=== PATIENT | male | born 1960 | race Caucasian/White ===

== ENCOUNTER → 2019-03-03 | Outpatient (CLI) | payer BC ==
--- NOTE | 2019-03-03 10:22 | MR ---
EXAMINATION TYPE: MR cervical spine wo con DATE OF EXAM ORDERED: 03/03/2019 9:59 AM HISTORY: Radiculopathy. TECHNOLOGIST HISTORY AT TIME OF EXAM: neck pain into left shoulder and arm COMPARISON: None. TECHNIQUE: Multiplanar, multiecho imaging of the cervical spine was obtained without contrast on a 1 .5 kate magnet. FINDINGS: Prevertebral soft tissues are unremarkable. Vertebral body height and alignment are maintained. Atlantoaxial relationships are normal. There is a normal craniocervical junction. Cord signal is normal. At C2-C3, no definite abnormality is seen. At C3-C4, there is mild left-sided intervertebral foraminal narrowing. At C4-C5, there is mild disc space loss and hypertrophic spondylosis. There is mild, bilateral interv ertebral foraminal narrowing. There is a diffuse disc displacement. The facet and uncovertebral joint s are unremarkable. At C5-C6, there is disc space loss and disc desiccation. There is hypertrophic spondylosis both anter iorly and posteriorly. There is a mixed spondylitic bar present posteriorly deforming the thecal sac without definite cord contact. There is intervertebral foraminal narrowing, worse on the left than th e right. The facet joints are unremarkable. There is mild uncovertebral joint disease. At C6-7 and C7-T1, no definite abnormality is seen. IMPRESSION: 1. DEGENERATIVE DISC DISEASE AND HYPERTROPHIC SPONDYLOSIS MOST MARKED AT C4-5 AND C5-6. 2. 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 3. MULTILEVEL INTERVERTEBRAL FORAMINAL NARROWING.
== END | disposition home or self-care (01) ==
LOC: RADMRIMAIN 09:27
PROVIDERS: ATTEND Family Medicine
DX: M48.02 Spinal stenosis, cervical region (principal); M50.321 Other cervical disc degeneration at C4-C5 level; M47.812 Spondylosis without myelopathy or radiculopathy, cervical region
CPT/HCPCS: 72141

== ENCOUNTER → 2024-07-04 | Outpatient (CLI) | payer BC | END | disposition home or self-care (01) | LOC: LABPRL 07:13 | PROVIDERS: ATTEND Nurse Practitioner Family | DX: E78.2 Mixed hyperlipidemia (principal); E11.9 Type 2 diabetes mellitus without complications; R94.5 Abnormal results of liver function studies | CPT/HCPCS: 80053; 80061; 83036; 85025 ==

== ENCOUNTER 2025-02-27 06:23 | Day surgery (SDC) | payer BC ==
[2025-02-25 14:54] VITALS: BMI 28.2
[~2025-02-27 06:23] MED LIST: LACTATED RINGERS 1,000 ML IV SCH
[2025-02-27 07:03] VITALS: RESP 16; TEMP 97.5
[2025-02-27] MEDS: IV FLUID CONTINUATION 1,000 ML IV ONE (07:13)
[2025-02-27 07:19] LABS: Glucose,Whole Blood 140 mg/dL (70-110)
[2025-02-27] MEDS ORDERED: LIDOCAINE 1% INJ 10MG/ML (20 ML MDV) ONE (07:23)
[2025-02-27] MEDS ORDERED: PROPOFOL 10 MG/ML 20 ML VIAL IV ONE (07:23)
--- NOTE | 2025-02-27 07:43 | P.PCN ---
Date of Procedure: 02/27/25 Procedure(s) Performed: Brief history: Patient is a pleasant 64-year-old white male scheduled for an elective upper endoscopy as well as colonoscopy as a part of evaluation of intermittent episodes of nausea vomiting continued bowel habits for the last 6 months duration. Procedure performed: Esophagogastroduodenoscopy with biopsy Colonoscopy Preoperative diagnosis: Intermittent episodes of nausea vomiting and diarrhea of 6 months duration Anesthesia: MAC Procedure: After informed consent was obtained from the patient was brought into the endoscopy unit and IV sedation was administered by anesthesia under continuous monitoring. Initially upper endoscopy was done. The Olympus GF 160 video endo scope was inserted inserted into the mouth and esophagus intubated without any difficulty and was gradually advanced into the stomach and duodenum and carefully examined. The bulb and second part of the duodenum appeared normal. The scope was then withdrawn into the stomach adequately insufflated with air and upon careful examination the antrum had mild gastritis and biopsies were done of this area. Mucosa body, cardia and fundus appeared normal. The scope was then withdrawn into the esophagus. The GE junction was located at 40 cm to the incisors. It appeared regular with 2 superficial erosions consistent with LA grade B reflux esophagitis. Rest of the esophagus appeared normal and the patient tolerated the procedure well. At this time the patient continued to remain sedation. Initial digital rectal examination was normal. Olympus CF 160 video colonoscope was then inserted into the rectum and gradually advanced to the cecum without any difficulty. Careful examination was performed as the scope was gradually being withdrawn. The prep was excellent. The cecum, ascending colon, transverse colon, descending colon, sigmoid colon and rectum appeared normal. Scattered sigmoid diverticulosis. Retroflexion was performed in the rectum and no lesions were noted. Patient tolerated the procedure well. Impression: 1. Upper endoscopy revealed mild antral gastritis and LA grade B reflux esophagitis. 2. Colonoscopy revealed scattered sigmoid diverticulosis but no evidence of colorectal neoplasia Recommendations: Findings of this examination were discussed with the patient as well as his family. He was advised to follow the biopsy results. Recommended repeat screening colonoscopy in 10 years.
[2025-02-27 08:09] VITALS: BP 124/75; PULSE 75
== END 2025-02-27 08:37 | disposition home or self-care (01) ==
LOC: ORWHC2ENDO 06:23
PROVIDERS: ATTEND Internal Medicine Gastroenterology
DX: R11.2 Nausea with vomiting, unspecified (principal); R19.7 Diarrhea, unspecified; K21.00 Gastro-esophageal reflux disease with esophagitis, without bleeding; K57.30 Diverticulosis of large intestine without perforation or abscess without bleeding
CPT/HCPCS: 45378; 43239; J2003; J2704; 88305